=== PATIENT | female | born 2000 | race Two or more races ===

== ENCOUNTER 2024-03-14 19:56 | Observation (INO) ==
[2024-03-14] MEDS: ONDANSETRON INJ 2 MG/ML 2 ML VIAL IV STA ×2 (21:00→22:01)
[2024-03-14 21:09] LABS: Hematocrit (blood only) 39.6 % (37.0-47.0); Hemoglobin 13.4 g/dl (12.0-16.0); Mean Corpuscular Hemoglobin 28.2 pg (25.0-34.0); Mean Corpuscular Hgb Conc 33.8 g/dL (32.0-36.0); Mean Corpuscular Volume 83.2 fL (80.0-100.0); Mean Platelet Volume 8.6 fL (9.4-12.4); Platelet Count 247 K/uL (130-400); RDW Coefficient of Variation 12.5 % (11.5-14.5); RDW Standard Deviation 37.9 fL (36.4-46.3); Red Blood Count 4.76 M/uL (4.20-5.40); White Blood Count 10.21 K/ul (4.8-10.8)
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
[2024-03-14 21:13] LABS: BUN Creatinine Ratio 23.2 (10-20); Calcium 9.7 mg/dl (8.6-10.3); Creatinine Clr Calc Pharmacy 101.1 ml/min; Potassium 3.6 mmol/L (3.5-5.1)
--- NOTE | 2024-03-14 21:13 | CT Scan Report ---
Exam(s): CT HEAD Without Contrast EXAM: CT Head Without Intravenous Contrast CLINICAL HISTORY: Reason for exam: trauma. TECHNIQUE: Axial computed tomography images of the head/brain without intravenous contrast. CTDI is 37.78 mGy and DLP is 624.41 mGy-cm. Automated exposure control was utilized for the study. A dose lowering technique was utilized adhering to the principles of ALARA. Mild motion artifact. COMPARISON: None. FINDINGS: Brain: No mass effect or acute infarct. No acute hemorrhage. No abnormal density in the brain parenchyma. Ventricles: No hydrocephalus or midline shift. Bones/joints: No skull fracture. Soft tissues: No scalp hematoma. Visualized Sinuses: Clear. Mastoid air cells: No mastoid effusion. IMPRESSION: 1. No acute intracranial abnormality. Electronically signed by: Whitney Marin M.D. 03/14/24 21:12 PM
--- NOTE | 2024-03-14 21:16 | CT Scan Report ---
Exam(s): CT FACIAL Without Contrast EXAM: CT Maxillofacial Without Intravenous Contrast CLINICAL HISTORY: Reason for exam: trauma. TECHNIQUE: Axial computed tomography images of the face without intravenous contrast. CTDI is 26.96 mGy and DLP is 576.66 mGy-cm. Automated exposure control was utilized for the study. A dose lowering technique was utilized adhering to the principles of ALARA. COMPARISON: No relevant prior studies available. FINDINGS: Bones/joints: No acute fracture. Soft tissues: Small midline forehead swelling, probable hematoma. Orbits: Unremarkable. Sinuses: Unremarkable. No air-fluid levels. IMPRESSION: 1. No nasal bone, orbital wall or facial fracture. Electronically signed by: Whitney Marin M.D. 03/14/24 21:15 PM
--- NOTE | 2024-03-14 21:19 | CT Scan Report ---
Exam(s): CT C SPINE EXAM: CT Cervical Spine Without Intravenous Contrast CLINICAL HISTORY: Reason for exam: trauma. TECHNIQUE: Axial computed tomography images of the cervical spine without intravenous contrast. CTDI is 26.96 mGy and DLP is 576.66 mGy-cm. Automated exposure control was utilized for the study. A dose lowering technique was utilized adhering to the principles of ALARA. COMPARISON: None. FINDINGS: Vertebrae: No acute fracture. Discs/spinal canal/neural foramina: Normal. Soft tissues: Unremarkable. IMPRESSION: 1. No fracture or acute bony abnormality. Electronically signed by: Whitney Marin M.D. 03/14/24 21:18 PM
[2024-03-14 21:28] LABS: Pregnancy Test, Serum Negative (Negative)
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
[2024-03-14] MEDS: LIDOCAINE 1% LOCAL 20 ML VIAL INFIL ONE (22:01)
[2024-03-14] MEDS: LIDOCAINE 1%/EPINEPHRINE 1:100,000 50 ML VIAL INFIL ONE (22:02)
--- NOTE | 2024-03-14 22:02 | XRay Report ---
Exam(s): XR CXR 1 VIEW EXAM: XR Chest, 1 View CLINICAL HISTORY: Reason for exam: trauma. TECHNIQUE: Frontal view of the chest. COMPARISON: None. FINDINGS: Lungs: Clear. No consolidation. Pleural space: No pneumothorax. Heart: No cardiomegaly. Mediastinum: Unremarkable. Bones/Soft Tissues: No acute abnormality. IMPRESSION: 1. No acute process in the chest. Lungs are clear. Electronically signed by: Whitney Marin M.D. 03/14/24 22:01 PM
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
[2024-03-14] MEDS ORDERED: Patient's ALLERGY Info needs ENTERED STA (23:37)
[2024-03-15] MEDS: PROCHLORPERAZINE 2 ML IV STA (00:18)
--- NOTE | 2024-03-15 00:53 | Billing Data ---
Date of Service March 14, 2024 Coding Level of Care Code 06917 INT INP/OBS CARE
[2024-03-15] MEDS ORDERED: ONDANSETRON INJ 2 MG/ML 2 ML VIAL IV PRN (01:02)
[2024-03-15] MEDS ORDERED: POLYETHYLENE (MIRALAX) 17 GM PACK PO PRN (01:02)
[2024-03-15] MEDS: ACETAMINOPHEN 325 MG TAB PO PRN (02:11)
[2024-03-15 03:38] VITALS: RESP 18; TEMP 97.7
[2024-03-15 07:38] VITALS: PULSE 64; O2SAT 100
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
[2024-03-15 10:22] VITALS: BP 113/73
== END 2024-03-15 11:36 | disposition home or self-care (01) ==
LOC: 2W 19:56 → ED 19:56 → SUATTDRO 23:34 → 2W 03-15 00:20